=== PATIENT | male | born 1990 | race Caucasian/White ===

== ENCOUNTER 2018-09-13 17:32 | Emergency (ER) | payer OTHER ==
[~2018-09-13] VITALS: Ht 172.7 cm; Wt 61.2 kg
[~2018-09-13 17:32] MED LIST: AMBIEN10 MG PO; ATIVAN0.5 MG PO; ZOLOFT50 MG PO
== END 2018-09-13 22:20 | disposition home or self-care (01) ==
LOC: ER 17:32
DX: R10.31 Right lower quadrant pain (principal)

== ENCOUNTER 2019-07-05 17:35 | Emergency (ER) | payer OTHER ==
[~2019-07-05] VITALS: Ht 167.6 cm; Wt 61.2 kg
== END 2019-07-05 21:22 | disposition home or self-care (01) ==
LOC: ER 17:35
DX: J11.1 Influenza due to unidentified influenza virus with other respiratory manifestations (principal); B96.0 Mycoplasma pneumoniae [M. pneumoniae] as the cause of diseases classified elsewhere

== ENCOUNTER 2024-09-30 16:08 | Emergency (ER) | payer OTHER ==
[~2024-09-30] VITALS: Ht 172.7 cm; Wt 68.9 kg
[2024-09-30] MEDS ORDERED: GUAIFENESIN/DEXTROMETHORPHAN 100MG/10ML BLIST.PACK PO ONE (17:00)
[2024-09-30] MEDS ORDERED: GUAIFENESIN 200 MG/10 ML BLIST.PACK PO ONE (17:24)
[2024-09-30 17:27] LABS: HEMATOCRIT 49.2 % (39.0-48.0); MEAN CELL VOLUME 83.4 fL (80.0-100.00); MEAN CORPUSCULAR HEMOGLOBIN 28.8 pg (27.00-32.0); MEAN CORPUSCULAR HGB CONC 34.5 g/dl (32.0-36.0); PLATELET COUNT 274 K/uL (150-450); RED CELL DISTRIBUTION WIDTH 13.4 % (11.5-14.5)
[2024-09-30 17:52] LABS: COVID-19 AG NEGATIVE (NEGATIVE)
[2024-09-30 17:59] LABS: INFLUENZA A AG NEGATIVE (NEGATIVE)
[2024-09-30] MEDS ORDERED: ZITHROMAX500 MG PO (18:48)
[2024-09-30] MEDS ORDERED: TUSSIN DM LIQU118 ML PO (18:48)
== END 2024-09-30 19:30 ==
LOC: ER 16:09
PROVIDERS: Preventive Medicine Public Health & General Preventive Medicine
DX: J06.9 Acute upper respiratory infection, unspecified (principal); J00 Acute nasopharyngitis [common cold]; Z20.822 Contact with and (suspected) exposure to COVID-19; Z88.6 Allergy status to analgesic agent